=== PATIENT | male | born 1975 | race Caucasian/White ===

== ENCOUNTER 2016-08-01 16:03 | Emergency (ER) | payer MEDICARE, MEDICAID ==
[~2016-08-01] VITALS: Ht 182.9 cm; Wt 200.0 kg
[~2016-08-01 16:03] MED LIST: AMOX-366 PO; AMOX500T2 PO; CIPR-198 PO; IBUP800T28 PO; METR500T PO; NYST1POW25 TOPICAL; OMPR20CCR PO; OXYC-474 PO; OXYC5TAB72 PO; ROPI1TAB2 PO; SENN17.27 PO
[2016-08-01 16:26] VITALS: BP 172/98; PULSE 64; RESP 20; O2SAT 100
--- NOTE | 2016-08-01 17:19 | ED.REPORT ---
HPI-Rash / Abscess Date of Service Aug 01, 2016 ED Provider: Pablo Riggs PA-C Eleno is a 41-year-old male with a history of COPD and sleep apnea who presents with chief complaint of an abscess on the back of his neck. Patient reports a history of a tracheostomy which is held in place with a strap around his neck. There is a area of swelling beneath his strap that he has noticed clear discharge from over the last week or so. He states his pain has been increasing. Denies fever, chills, malaise, abdominal pain, vomiting, cold sweats. Nursing Notes Stated Complaint: NECK WOUND Chief Complaint: General Complaint Nursing Notes Reviewed: Yes Allergies: Coded Allergies: acetaminophen (Verified Adverse Reaction, Intermediate, ITCH, 08/01/16) Scheduled Amoxicillin (Amoxicillin) 500 Mg Tablet 500 MG PO TID Amoxicillin/Clav K 875-125 mg (Augmentin 875-125 mg) 1 Each Tablet 1 TABLET PO BID Ciprofloxacin (Ciprofloxacin) 500 Mg Tablet 500 MG PO BID Metronidazole (Flagyl) 500 Mg Tablet 500 MG PO Q8H Nystatin (Nystatin) 1 Each Powder.ea. 1 APPLIC TOPICAL BID Omeprazole (Prilosec) 20 Mg Capcr 20 MG PO DAILY Ropinirole (Requip) 1 Mg Tablet 1 MG PO HS Sennosides (Senna-Extra) 17.2 Mg Tablet 17.2 MG PO DAILY Scheduled PRN Ibuprofen (Ibuprofen) 800 Mg Tablet 800 MG PO TID PRN PRN For Pain Oxycodone (Roxicodone) 5 Mg Tablet 5 MG PO Q4H PRN PRN For Pain oxyCODONE (oxyCODONE) 5 Mg Tablet 10 MG PO Q6H PRN PRN For Moderate Pain General Time Seen by MD: 16:38 Chief Complaint Abscess Past Medical History Past Medical History Obesity HTN Tracheostomy (Sounds like sleep apnea) Reports: COPD, Hypertension Past Surgical History Tracheostomy Smoking History Current Every Day Smoker Review of Systems Review of Systems Note: Negative unless stated otherwise in history of present illness Physical Exam General: Morbidly obese, disheveled, well-appearing, no acute distress. Neck: 4 cm x 3 cm area of induration on the back of neck with some slight fluctuance to the left hand aspect. Ultrasound reveals a small pocket of fluid in this area. Head: Atraumatic, normocephalic. Eyes: No scleral icterus or injection. No discharge. Vision grossly intact. ENT: Voice clear, hearing grossly intact. Respiratory: No respiratory distress, no increased work of breathing. Speaks in complete sentences. Skin: Warm and dry. Neurological: Grossly nonfocal. Psychological: alert and oriented. Speech appropriate, linear and logical. Behavior appropriate. Initial Vital Signs Vital Signs (First) Date Time Temp Pulse Resp B/P Pulse Ox O2 Delivery O2 Flow Rate FiO2 08/01/16 16:26 36.1 64 20 172/98 100 Room Air Initial VS: Vital signs abnormal Procedures Incision & Drainage Abscess Procedure Performed by: Allied health pract Consent / Setup / Site Prep: Informed consent provided, Consent from patient , Hand hygiene observed Skin Preparation Agent: Hibiclens - Chlorhexidine Local Anesthesia: Lidocaine w epi 2%, 2cc, 27g needle Incised Abscess with Scalpel: #11 Pus Drained: Small, Purulent discharge, Bloody Post-Procedure / Complications: Packing placed, Drain placed, Culture obtained, Gram stain ordered, Dressing applied, No complications, Condition improved, Tolerated procedure well, Patient stable Re-Eval/Medical Decision Med Decision/Clinical Course 41-year-old male with a history of COPD and sleep apnea presents with chief complaint of an abscess. Reports a worsening abscess on the back his neck over the last week, with episodes of clear drainage. No indication of systemic symptoms. I see no indication for prophylactic antibiotics Area of induration noted on the back of neck with a small area of fluctuance. Ultrasound reveals 2 small pockets of fluid. Incised and drained, producing small amount of purulence and blood. Placed packing and dressed with a bike when and gauze. Advised wound care, primary care follow-up, emergency return precautions. Patient understands and agrees with the plan. Discharge & Departure Impression: Primary Impression: Abscess Additional Impression: Elevated blood pressure reading Disposition: Home Discharge Condition All VS Reviewed: Yes Condition: Stable Patient Instructions: Abscess Incision and Drainage (ED) Additional Instructions: Evaluation for an abscess in the emergency department. History and physical are reassuring is unlikely to be a systemic infection, but you clearly have an abscess on yout neck. We cut this open and let the pus out. We placed some packing in it and dressed it with antibiotic ointment and gauze. Keep this dressing clean and dry for about 24 hours. After that you can wash with soap and water. I see no indication for antibiotics at this time. The pain is best treated with 400 mg of ibuprofen (Advil, Motrin) every 6 hours , or 1000 mg of acetaminophen (Tylenol) every 6 hours. These drugs can be taken at the same time for more severe pain. Follow-up with your primary care provider in the next few days to be sure this is progressing as expected. Return to the emergency department for any new or worsening symptoms including fever, increasing pain, redness, swelling or increasing pus. I also note that your blood pressure was elevated during your visit to the emergency department. Please discuss this with your primary care provider. Referrals: Steph Smith PA-C (PCP) EDSupervising Provider for APC: Joshua Coates MD copies to: Steph Smith PA-C, Seth PA-C Aug 01, 2016 17:19
== END 2016-08-01 17:33 | disposition home or self-care (01) ==
LOC: SED 16:03 → EDBD 16:03 → SED 17:33
DX: L02.11 Cutaneous abscess of neck (principal); I10 Essential (primary) hypertension; J44.9 Chronic obstructive pulmonary disease, unspecified; Z93.0 Tracheostomy status; F17.200 Nicotine dependence, unspecified, uncomplicated; Z88.6 Allergy status to analgesic agent